=== PATIENT | male | born 1950 | race Caucasian/White ===

== ENCOUNTER 2024-12-01 23:16 | Emergency (ER) | payer SELFPAY ==
[2024-12-01 23:19] VITALS: BP 158/64
[2024-12-02 01:38] VITALS: BP 142/59
[2024-12-02 01:39] VITALS: BMI 26.3
[2024-12-02 02:00] VITALS: BP 129/96
--- NOTE | 2024-12-02 02:09 | ED.GENMED ---
History of Present Illness
General
Chief Complaint: Extremity Pain (non-traumatic)
Source: patient
Exam Limitations: none
Time Seen by Provider: 12/02/24 02:02
Nursing documentation reviewed up to this point in time: agreed with
History of Present Illness
History of Present Illness:
74-year-old male with a past medical history of coronary artery disease, renal failure on dialysis, presents emergency department today with concerns of diffuse bodyaches following administration of dialysis this morning. Patient reports that
anytime he gets dialysis, he gets diffuse body pain and requires tramadol and different opioid medications to get through his treatment. Patient states that today his pain was worse than any of these or tramadol to relieve his symptoms. Patient
reports that his PCP prescribes these medications and that he ran out of his tramadol and he is requesting more medication in the next time he can get it is within a few days.
Patient states that he is on cipro and steroids for cellulitis of his left foot but has not had any fevers or chills and the redness has not spread. He denies any nausea or vomiting. [place] any chest pain shortness of breath. Patient states that he
has had this problem for multiple months and states that this pain following dialysis is not new.
Review of Systems
Review of Systems
All Other Systems: ROS reviewed and negative except as documented in HPI and ROS
Phy Exam
Physical Exam
Physical Exam:
General: Patient is well appearing and in no acute distress; non-toxic
Skin: Warm and dry, no rashes or lesions
Head: Normocephalic, atraumatic
Eyes: Sclera non-icteric. EOMs intact.
Cardiac: Regular rate and rhythm, no murmur
Peripheral Vascular: No lower extremity swelling or edema
Pulm: Normal respiratory effort, no wheezes, rales, rhonchi
Abdomen: No abdominal tenderness to palpation
Musculoskeletal: No tenderness palpation of the bilateral upper and lower extremities. Normal and steady gait appreciated.
Neuro: CN II-XII intact, no focal neurologic deficits.
Psychiatric: Appropriate mood and affect.
Course
Orders/Labs/Results
Orders:
Orders
12/02/24 02:17
Acetaminophen [Tylenol] 1,000 mg PO NOW STA
Tramadol HCl [Ultram] 50 mg PO NOW STA
12/02/24 02:37
Basic Metabolic Panel Urgent
Comment: NO K
CPK [Creatine Phosphokinase] Urgent
Complete Blood Count/With Diff Urgent
12/02/24 03:56
Electrocardiogram (*1) Urgent
Reason for Study: Other
Other Reason for Exam: t wave
EKG- Treatment ONCE
12/02/24 04:08
EKG- Treatment ONCE
12/02/24 04:11
Potassium Urgent
Abnormal Lab Results
12/02/24 12/02/24
02:37 04:11
WBC 14.0 H 10^3/uL
(4.8-10.8)
RBC 3.63 L 10^6/uL
(4.70-6.10)
Hgb 11.7 L g/dL
(13.0-18.0)
Hct 34.7 L %
(39.0-52.0)
MCV 95.6 H fL
(80.0-94.0)
MCH 32.2 H pg
(27.0-31.0)
RDW 18.7 H %
(11.5-14.5)
Abs Immat Gran (auto) 0.2 H 10^3/uL
(0-0.05)
Absolute Neuts (auto) 12.0 H 10^3/uL
(1.4-6.5)
Absolute Lymphs (auto) 0.8 L 10^3/uL
(1.2-3.4)
Absolute Monos (auto) 1.0 H 10^3/uL
(0.1-0.6)
Immature Gran % 1.2 H %
(0-0.5)
Neutrophils % 86.2 H %
(42.2-75.2)
Lymphocytes % 5.4 L %
(20.5-51.1)
Potassium 5.9 H mmol/L
(3.5-5.1)
Carbon Dioxide 13 L* mmol/L
(22-30)
BUN 107 H* mg/dl
(9-20)
Creatinine 11.5 H* mg/dL
(0.7-1.3)
Creatine Kinase 177 H U/L
(55-170)
12/02/24 02:37
12/02/24 04:11
Vital Signs
Initial and Last Documented VS:
Initial Vital Signs
Temp Pulse Resp BP Pulse Ox
97.8 F 80 26 158/64 96
12/01/24 23:19 12/01/24 23:19 12/01/24 23:19 12/01/24 23:19 12/01/24 23:19
Last Documented Vital Signs
Temp Pulse Resp BP Pulse Ox
97.8 F 80 26 138/63 97
12/01/24 23:19 12/01/24 23:19 12/01/24 23:19 12/02/24 04:17 12/02/24 04:20
MDM/Problems Addressed
Differential Diagnosis Includes:
Differentials include dialysis side effect, musculoskeletal sprain/strain, cellulitis, rhabdomyolysis
MDM/Problems Addressed:
74-year-old male with past medical history of renal failure on dialysis presents emergency department today with concerns of diffuse bodyaches following dialysis treatment. Patient states that he has gotten the symptoms ever since starting dialysis
and usually they are managed with tramadol and hydrocodone. Patient reports that the pain was a bit worse today he states that he has too much of his tramadol's and states that he has a few days till he gets his prescription refilled. Patient is
requesting refills of his opioid medications. Physical exam patient is well-appearing no acute distress ambulates without difficulty, no bony tenderness palpation. CBC unremarkable, CMP does show an acidosis however in light of chronic renal
failure, do not suspect any acute process, advised patient to follow-up with his design and sales consultant. Potassium is elevated however patient has regimens at home to help with this and just got dialysis, patient states that he will call his design and sales consultant
later today. No concerning EKG changes appreciated. Did check PDMP, patient has multiple scripts for opioid medication, discussed with patient we are not able to refill his prescription at this time patient should defer to his pain management
specialist/[facility] PCP. Patient expressed understanding. Patient stable for discharge.
Chronic conditions affecting care:
n/a
*Pulse Oximetry
Patient hypoxic: no
*Critical Care Note
Total Time (30-74mins, 75-104mins- exclusive of procedures): Not Applicable
Data Reviewed
Review of Other/Old Records Reveals: Records (No prior ER discharge summary to review, no ER/documentation to review)
Patient Management
Escalation/DeEscalation of care consider admission/obs:
Reviewed case and treatment with my attending, patient stable for discharge
ED Attending Note
-
Portions of this chart may have been created with voice recognition software.� Occasional wrong word or��sound alike� substitutions may have occurred due to the inherent limitations of voice recognition software.
Discharge Plan
Departure
Patient Disposition: Home (Routine Discharge)
Date of Disposition: 12/02/24
Time of Disposition: 04:36
Patient with high blood pressure during this ER visit?: Yes
Condition: Good
Discharge Problem:
Body aches
Instructions: Muscle and Bone Pain (DC), Hemodialysis, BLOOD PRESSURE
Referrals:
John Beyer DO [Family Provider] -
Activity Restrictions/Additional Instructions:
Please call your primary care provider and your prescriber of your pain medication.
Please follow-up with your design and sales consultant, please call to schedule follow-up appointment and explain the symptoms you have been having.
PLEASE RETURN EMERGENCY DEPARTMENT SHOULD YOU DEVELOP TREMORS, LOSS OF CONSCIOUSNESS, DIZZINESS, LIGHTHEADEDNESS, CHEST PAIN, SHORTNESS OF BREATH, ABDOMINAL PAIN, FAINTING SPELLS, OR ANY OTHER SIGNS OR SYMPTOMS RECENTLY.
Interventions
Interventions:
*Risk Screen - Suicide Last Done: 12/02/24 01:39
*General Assessment Last Done: 12/02/24 01:39
*Neglect/Abuse Screening Last Done: 12/02/24 01:39
*ED- Fall Risk Assessment Last Done: 12/02/24 01:39
*ED COVID-19 Vaccine History Last Done: 12/02/24 01:39
*Nursing Disposition Last Done: 12/02/24 05:02
ED-Skin Assessment Last Done: 12/02/24 01:42
ED-Peripheral Vascular Assessment Last Done: 12/02/24 01:42
ED- Pulmonary Assessment Last Done: 12/02/24 01:42
ED- Neurological Assessment Last Done: 12/02/24 01:42
ED-Musculoskeletal Assessment Last Done: 12/02/24 01:42
ED- Cardiac Assessment Last Done: 12/02/24 01:42
Discharge Date and Time
Discharge Date/Time: 12/02/24 05:02
Print Language: MALAYSIAN
[2024-12-02] MEDS: ULTRAM 50 MG PO (02:30)
[2024-12-02] MEDS: TYLENOL 1000 MG PO (02:30)
[2024-12-02 03:00] VITALS: BP 152/86
[2024-12-02 03:12] LABS: % Basophils 0.1 % (0-2); % Immature Granulocytes 1.2 % (0-0.5); % Lymphocytes 5.4 % (20.5-51.1); % Monocytes 7.1 % (1.7-9.3); % Neutrophils 86.2 % (42.2-75.2); Absolute Immature Granulocytes 0.2 10^3/uL (0-0.05); Absolute Lymphocytes 0.8 10^3/uL (1.2-3.4); Hematocrit 34.7 % (39.0-52.0); Hemoglobin 11.7 g/dL (13.0-18.0); Mean Corp Hgb Conc. 33.7 g/dL (33.0-37.0); Mean Corpuscular Hgb 32.2 pg (27.0-31.0); Mean Corpuscular Volume 95.6 fL (80.0-94.0); Mean Platelet Volume 9.3 fL (7.4-10.4); Nucleated Red Blood Cells % 0 % (-); Platelet Count 376 10^3/uL (130-400); Red Blood Cell Count 3.63 10^6/uL (4.70-6.10); Red Cell Dist. Width 18.7 % (11.5-14.5)
[2024-12-02 03:40] LABS: Blood Urea Nitrogen 107 mg/dl (9-20); Calcium 9.8 mg/dl (8.4-10.2); Carbon Dioxide 13 mmol/L (22-30); Chloride 102 mmol/L (98-107); Creatine Phosphokinase 177 U/L (55-170); Estimated Creatinine Clearance 6 ml/min; Glucose 93 mg/dl (70-99); Sodium 143 mmol/L (135-145); eGFR 4.24
[2024-12-02 04:17] VITALS: BP 138/63
[2024-12-02 04:27] LABS: Potassium 5.9 mmol/L (3.5-5.1)
== END 2024-12-02 05:02 | disposition home or self-care (01) ==
LOC: EMR 23:16
PROVIDERS: Physician Assistant; EMERGENCY PHYSICIAN Emergency Medicine; FAMILY PHYSICIAN Internal Medicine
DX: R52 Pain, unspecified (principal); I25.10 Atherosclerotic heart disease of native coronary artery without angina pectoris; N18.6 End stage renal disease; Z99.2 Dependence on renal dialysis
CPT/HCPCS: 99284; 80048; 82550; 84132; 85025; 93005